=== PATIENT | female | born 1990 | race Caucasian/White ===

== ENCOUNTER 2017-10-17 21:57 | Emergency (ER) | payer BC ==
--- NOTE | 2017-10-17 22:46 | ED ---
Skin Complaint - HPI Summary HPI Summary: 27 female presents to ED with complaints of a diffuse rash throughout her body that appeared today and has since quickly worsened and spread. States she just finished augmentin course yesterday for treatment of strep. Has had penicillin in the past without reaction. Has never had this type of rash before. States it is itchy. Denies drainage. No other complaints other than a lingering sore throat that was re-tested for strep yesterday and negative. No fever/chills. No PMHx. No other medications. Denies throat swelling, trouble breathing. - History of Current Complaint Chief Complaint: EDRashSkinAbscess Time Seen by Provider: 10/17/17 22:18 Stated Complaint: RASH/DX STREP THROAT Hx Obtained From: Patient Onset/Duration: Started Hours Ago, Still Present, Worse Since Skin Exposure Onset/Duration: Hours Ago Timing: Constant Onset Severity: Mild Current Severity: Moderate Pain Intensity: 4 Pain Scale Used: 0-10 Numeric - itchy Skin Location: Diffuse Character: Pruritus, Redness, Raised Aggravating Symptom(s): Nothing Alleviating Symptom(s): Nothing Associated Signs & Symptoms: Negative Related History: Recent change in medication - just completed augmentin course - Allergy/Home Medications Allergies/Adverse Reactions: Allergies Allergy/AdvReac Type Severity Reaction Status Date / Time No Known Allergies Allergy Verified 10/17/17 22:03 PMH/Surg Hx/FS Hx/Imm Hx Endocrine/Hematology History: Denies: Hx Diabetes Cardiovascular History: Denies: Hx Hypertension Respiratory History: Denies: Hx Asthma - Surgical History Surgery Procedure, Year, and Place: n/a - Immunization History Immunizations Up to Date: Yes Infectious Disease History: No Infectious Disease History: Denies: Traveled Outside the [place] in Last 30 Days - Family History Known Family History: Positive: None - Social History Alcohol Use: Rare Substance Use Type: Reports: None Smoking Status (MU): Never Smoked Tobacco Review of Systems Constitutional: Negative Cardiovascular: Negative Respiratory: Negative Positive: Rash All Other Systems Reviewed And Are Negative: Yes Physical Exam Triage Information Reviewed: Yes Vital Signs On Initial Exam: Initial Vitals Temp Pulse Resp BP Pulse Ox 97.8 F 81 16 131/73 100 10/17/17 22:01 10/17/17 22:01 10/17/17 22:01 10/17/17 22:01 10/17/17 22:01 Vital Signs Reviewed: Yes Appearance: Positive: Well-Appearing, No Pain Distress, Well-Nourished Skin: Positive: Warm, Skin Color Reflects Adequate Perfusion, Dry, Other - morbilliform drug eruption appearing rash diffuse throughout trunk, extremities , pruritic and erythematous no drainage Head/Face: Positive: Normal Head/Face Inspection Eyes: Positive: Conjunctiva Clear ENT: Positive: Pharynx normal, Pharyngeal erythema, TMs normal, Uvula midline, Other - no sign of strawberry tongue. Negative: Tonsillar swelling, Tonsillar exudate Neck: Positive: Supple, Nontender, No Lymphadenopathy Respiratory/Lung Sounds: Positive: Clear to Auscultation, Breath Sounds Present. Negative: Rales, Rhonchi, Wheezes Cardiovascular: Positive: Normal, RRR, Pulses are Symmetrical in both Upper and Lower Extremities. Negative: Murmur, Rub Abdomen Description: Positive: Nontender, Soft Bowel Sounds: Positive: Present Musculoskeletal: Positive: Normal, Strength/ROM Intact Neurological: Positive: Normal, Sensory/Motor Intact, Alert, Oriented to Person Place, Time Diagnostics - Vital Signs Vital Signs Temp Pulse Resp BP Pulse Ox 10/17/17 22:01 97.8 F 81 16 131/73 100 - Laboratory Lab Statement: Any lab studies that have been ordered have been reviewed, and results considered in the medical decision making process. Course/Dx - Course Course Of Treatment: patient requested hcg preg. obtained and negative. due PE findings appears to be suffering from pcn rash. will treat with benadryl and prednisone. given first dose while in ED. continue when at home. aware of worsening signs and symptoms to watch out for. Follow up with pcp. no other concerns at this time. normal vitals. no signs of resp distress. - Differential Diagnoses - Skin Complaint Differential Diagnoses: Drug Rash, Scarlatina, Urticaria - Diagnoses Provider Diagnoses: Medication reaction, Drug eruption, Rash - Physician Notifications Discussed Care Of Patient With: Dr oMore Discharge - Discharge Plan Condition: Stable Disposition: HOME Prescriptions: predniSONE TAB* [Deltasone TAB*] 20 mg PO DAILY #4 tab Patient Education Materials: Acute Rash (ED), Antibiotic Medication Allergy (ED ) Referrals: Non Staff,Doctor [Primary Care Provider] - Additional Instructions: continue taking prescribed prednisone as directed for rash. continue taking 25mg benadryl at bedtime, throughout day if needed and/or claritin. avoid penicillin in future illness. increase fluid intake. any new or worsening symptoms please seek medical attention promptly (worsening rash, fever, new symptoms). follow up with pcp for recheck.
[2017-10-17] MEDS ORDERED: diPHENhydraMINE PO* 50 MG PO ONE (23:04)
[2017-10-17] MEDS ORDERED: predniSONE TAB* 20 MG PO ONE (23:39)
[2017-10-17 23:53] VITALS: BP 124/69
== END 2017-10-17 23:48 | disposition home or self-care (01) ==
LOC: ED 21:57
DX: L27.0 Generalized skin eruption due to drugs and medicaments taken internally (principal); T36.0X5A Adverse effect of penicillins, initial encounter
CPT/HCPCS: 36415; 84702; 99282; A9270-GY; J7512